=== PATIENT | female | born 1960 | race African-American/Black ===

== ENCOUNTER 2018-08-09 05:44 | Inpatient (IN) | payer MEDICAID, OTHER ==
[2018-08-09] VITALS (12 sets, daily range): BP systolic 131–169; BP diastolic 66–81
[~2018-08-09] VITALS: Ht 170.2 cm; Wt 72.6 kg
[~2018-08-09 05:44] MED LIST: LISINOPRIL
[2018-08-09] MEDS ORDERED: ONDANSETRON HCL 4MG/2ML INJ IV STA (06:33)
[2018-08-09] MEDS ORDERED: KETOROLAC 30MG/ML VIAL IV STA (06:33)
[2018-08-09] MEDS ORDERED: MAGNESIUM/ALUMINUM HYDROXIDE/SIMETHICONE 30ML UDC PO STA (06:33)
[2018-08-09] MEDS ORDERED: SODIUM CHLORIDE 0.9% 1,000 ML IV ONE (06:33)
[2018-08-09] MEDS ORDERED: PANTOPRAZOLE SODIUM 40 MG/VIAL IV ONE (06:45)
[2018-08-09 06:57] LABS: CHLORIDE 100 mEq/L (98-107); PROTHROMBIN TIME 10.5 sec (9.6-11.0)
[2018-08-09 07:23] LABS: HEMOGLOBIN. 8.6 g/dL (12.0-16.0); MEAN CORPUSCULAR HEMOGLOBIN 29.7 pg (28.0-32.0); MEAN CORPUSCULAR VOLUME 92.8 fL (81.0-99.0); MEAN PLATELET VOLUME 7.5 fl (7.4-10.4); PLATELET 729 x1000/uL (130-400); RED BLOOD CELL COUNT 2.91 mill/uL (4.2-5.4); RED CELL DISTRIBUTION WIDTH 14.2 % (11.6-14.6)
[2018-08-09] MEDS ORDERED: ALBUTEROL (0.083%) 2.5MG/3ML NEB HHN ONE (07:45)
[2018-08-09] MEDS ORDERED: INSULIN REGULAR (HUMULIN R) 300UNITS/3ML IV ONE (07:45)
[2018-08-09] MEDS ORDERED: SODIUM BICARBONATE 8.4% 1 MEQ/ML 50ML SYR IV ONE ×2 (07:45→16:46)
[2018-08-09] MEDS ORDERED: DEXTROSE 50% WATER 50ML SYRINGE IV ONE (07:45)
[2018-08-09 07:55] LABS: PLATELET ESTIMATE MARKEDLY INCREASED
[2018-08-09] MEDS ORDERED: ACETAMINOPHEN 325MG TABLET PO PRN (09:30)
[2018-08-09] MEDS ORDERED: ONDANSETRON HCL 4MG/2ML INJ IV PRN (09:30)
[2018-08-09 09:36] LABS: TOTAL IRON BINDING CAPACITY 236 ug/dL (250-450)
[2018-08-09] MEDS ORDERED: CLONIDINE 0.1MG TABLET PO PRN (09:45)
[2018-08-09] MEDS ORDERED: SODIUM BICARBONATE 8.4% 1 MEQ/ML 50ML SYR IV NR (12:00)
[2018-08-09] MEDS ORDERED: HEPARIN 1000 UNITS/ML 10ML ONE (12:31)
[2018-08-09] MEDS ORDERED: SODIUM BICARBONATE 4% (2.4MEQ) 5ML VIAL IV ONE (12:31)
[2018-08-09] MEDS ORDERED: LIDOCAINE HCL 1% 20ML VIAL (Pyxis) INJ ONE (12:31)
[2018-08-09] MEDS ORDERED: FENTANYL CITRATE/PF 50MCG/ML 2ML VIAL ONE (12:44)
[2018-08-09] MEDS ORDERED: FENTANYL CITRATE/PF 50MCG/ML 2ML VIAL IV ONE (12:45)
[2018-08-09] MEDS: CITRIC ACID/SODIUM CITRATE SOLN 30ML UDC PO SCH ×2 (13:00→16:43)
[2018-08-09] MEDS ORDERED: FENTANYL CITRATE/PF 50MCG/ML 2ML VIAL IV SCH (13:15)
[2018-08-09] MEDS: CEFTRIAXONE 1 G PREMIX 50 ML IV SCH (14:55)
[2018-08-09 16:29] LABS: BG BASE EXCESS -19.7 mmol/L (-2.0-2.0); BG CARBOXYHEMOGLOBIN 0.3 % (0.5-1.5); BG DEOXYHEMOGLOBIN 3.1 % (0.0-5.0); BG FRACTION INSPIRED OXYGEN 21; BG HCO3 ACT 7.6 mmol/L (22.0-26.0); BG METHEMOGLOBIN 0.3 % (0.0-1.5); BG OXYGEN SATURATION 96.9 % (92.0-98.5); BG OXYHEMOGLOBIN 96.3 % (94.0-97.0); BG PCO2 22.8 mmHg (35.0-45.0); BG PO2 109.8 mmHg (75.0-100.0); BG SAMPLE SITE RIGHT BRACHIAL; BG TOTAL HEMOGLOBIN 8.9 g/dL (12.0-18.0); BG VENT MODE ROOM AIR
[2018-08-09 17:37] LABS: HEPATITIS B SURFACE ANTIGEN NEGATIVE
[2018-08-09 17:44] LABS: HEPATITIS B SURFACE AB 5.6 mIU/mL
[2018-08-09] MEDS ORDERED: EPOETIN ALFA 10000UNITS/ML VIAL SUBCUT SCH (21:00)
[2018-08-09] MEDS: AMLODIPINE 5MG TABLET PO SCH (21:24)
[2018-08-10] VITALS: BP 133/74
[2018-08-10 04:00] VITALS: BP 136/60
[2018-08-10 06:38] LABS: HEMATOCRIT. 21.7 % (36.0-48.0); HEMOGLOBIN. 7.3 g/dL (12.0-16.0); MEAN CORPUSCULAR HEMOGLOBIN 29.5 pg (28.0-32.0); MEAN CORPUSCULAR VOLUME 88.2 fL (81.0-99.0); PLATELET 649 x1000/uL (130-400); RED BLOOD CELL COUNT 2.46 mill/uL (4.2-5.4); RED CELL DISTRIBUTION WIDTH 13.9 % (11.6-14.6)
[2018-08-10 07:26] LABS: PHOSPHORUS 6.9 mg/dL (2.5-4.9)
[2018-08-10 08:30] VITALS: BP 131/68
[2018-08-10] MEDS: AMLODIPINE 5MG TABLET PO SCH ×2 (08:41→21:05)
[2018-08-10 09:33] LABS: PLATELET ESTIMATE MARKEDLY INCREASED
[2018-08-10] MEDS: CEFTRIAXONE 1 G PREMIX 50 ML IV SCH (09:38)
[2018-08-10] MEDS: OMEPRAZOLE 20MG CAPSULE EXTENDED RELEASE PO SCH (09:38)
[2018-08-10] MEDS: AZITHROMYCIN 500 MG TABLET PO SCH (10:04)
[2018-08-10] MEDS: CITRIC ACID/SODIUM CITRATE SOLN 30ML UDC PO SCH (10:04)
[2018-08-10] MEDS ORDERED: NIFE30TA83 MT (10:08)
[2018-08-10] MEDS ORDERED: LISI-604 MT (10:08)
[2018-08-10] MEDS ORDERED: METF-416 MT (10:08)
[2018-08-10] MEDS ORDERED: GLIP5TAB12 MT (10:08)
[2018-08-10 12:00] VITALS: BP 100/61
[2018-08-10] MEDS: CALCIUM ACETATE 667MG CAPSULE PO SCH ×2 (13:27→18:04)
[2018-08-10 14:21] LABS: CLARITY URINE CLEAR (CLEAR); COLOR URINE YELLOW (YELLOW); KETONES URINE NEGATIVE (NEGATIVE); LEUKOCYTE ESTERASE URINE TRACE (NEGATIVE); NITRITE URINE NEGATIVE (NEGATIVE); OCCULT BLOOD URINE 1+ (NEGATIVE); PH URINE 7.5 (4.5-8.0); PROTEIN URINE 3+ (NEGATIVE); SPECIFIC GRAVITY URINE 1.009 (1.005-1.030); UROBILINOGEN URINE 0.2 E.U./dL (0.2-1.0)
[2018-08-10 16:00] VITALS: BP 149/77
[2018-08-11 04:00] VITALS: BP 153/68
[2018-08-11 04:21] LABS: HIV SCREEN 4G Non Reactive (Non Reactive)
[2018-08-11 06:31] LABS: HEMATOCRIT. 21.7 % (36.0-48.0); HEMOGLOBIN. 7.2 g/dL (12.0-16.0); MEAN CORPUSCULAR HEMOGLOBIN 29.7 pg (28.0-32.0); MEAN PLATELET VOLUME 6.7 fl (7.4-10.4); PLATELET 590 x1000/uL (130-400); RED BLOOD CELL COUNT 2.43 mill/uL (4.2-5.4); RED CELL DISTRIBUTION WIDTH 13.8 % (11.6-14.6)
[2018-08-11] MEDS: OMEPRAZOLE 20MG CAPSULE EXTENDED RELEASE PO SCH ×2 (06:38→08:18)
[2018-08-11] MEDS: CALCIUM ACETATE 667MG CAPSULE PO SCH ×2 (06:39→09:24)
[2018-08-11 07:20] LABS: PHOSPHORUS 4.3 mg/dL (2.5-4.9)
[2018-08-11 08:00] VITALS: BP 158/80
[2018-08-11] MEDS: AZITHROMYCIN 500 MG TABLET PO SCH (09:24)
[2018-08-11] MEDS: AMLODIPINE 5MG TABLET PO SCH (09:24)
[2018-08-11 09:44] LABS: PLATELET ESTIMATE INCREASED
[2018-08-11 12:36] VITALS: BP 137/74
[2018-08-11] MEDS ORDERED: NIFEDIPINE XL 30MG TAB PO SCH (21:00)
[2018-08-11] MEDS ORDERED: NIFEDIPINE XL 60MG TAB PO SCH (21:00)
[2018-08-12] MEDS ORDERED: CEFTRIAXONE 1 G PREMIX 50 ML IV SCH (09:00)
== END 2018-08-11 15:13 | disposition home or self-care (01) | DRG 139 ==
LOC: ER 05:44 → 8WST 07:46 → ENRESERV 09:58
PROVIDERS: ADMIT Internal Medicine; ATTEND Internal Medicine
PROC: 02H633Z Insertion of Infusion Device into Right Atrium, Percutaneous Approach (ICD-10-PCS; 2018-08-09)
PROC: B2141ZZ Fluoroscopy of Right Heart using Low Osmolar Contrast (ICD-10-PCS; 2018-08-09)
PROC: B244YZZ Ultrasonography of Right Heart using Other Contrast (ICD-10-PCS; 2018-08-09)
PROC: 5A1D70Z Performance of Urinary Filtration, Intermittent, Less than 6 Hours Per Day (ICD-10-PCS; principal; 2018-08-10)
DX: J18.9 Pneumonia, unspecified organism (principal); E43 Unspecified severe protein-calorie malnutrition; E11.22 Type 2 diabetes mellitus with diabetic chronic kidney disease; E87.5 Hyperkalemia; E87.2 Acidosis; I12.0 Hypertensive chronic kidney disease with stage 5 chronic kidney disease or end stage renal disease; N17.9 Acute kidney failure, unspecified; N18.6 End stage renal disease; D72.829 Elevated white blood cell count, unspecified; D64.9 Anemia, unspecified; Z82.49 Family history of ischemic heart disease and other diseases of the circulatory system; Z90.711 Acquired absence of uterus with remaining cervical stump; Z83.3 Family history of diabetes mellitus; Z90.710 Acquired absence of both cervix and uterus; Z98.891 History of uterine scar from previous surgery; Z68.25 Body mass index [BMI] 25.0-25.9, adult; Z79.84 Long term (current) use of oral hypoglycemic drugs
CPT/HCPCS: 36415; 36558; 36600; 71045; 74176; 76937; 77001; 80048; 82270; 82375; 82550; 82728; 82805; 82962; 83036; 83540; 83550; 83605; 83735; 84100; 86705; 86706; 86803; 87340; 87389; 93005; 93970; 96374; 96375; 99152; 99153; 99291; C1750; C9113; J0696; J0885; J1644; J1815; J1885; J2405; J3010; J3490; J7030; J7050; G0500

== ENCOUNTER 2018-10-28 16:54 | Inpatient (IN) | payer MEDICAID ==
[~2018-10-28] VITALS: Ht 170.2 cm; Wt 69.9 kg
[~2018-10-28 16:54] MED LIST changes: +GLIP5TAB12 MT; -LISINOPRIL; +NIFE30TA83 MT
[2018-10-29] VITALS (23 sets, daily range): BP systolic 84–146; BP diastolic 56–81
[2018-10-29 00:05] LABS: BASOPHILS % 0.5 % (0.0-2.0); EOSINOPHILS % 3.2 % (0.0-5.0); HEMATOCRIT. 47.3 % (36.0-48.0); MEAN CORPUSCULAR HEMOGLOBIN 30.7 pg (28.0-32.0); MEAN CORPUSCULAR VOLUME 96.6 fL (81.0-99.0); MEAN PLATELET VOLUME 8.6 fl (7.4-10.4); MONOCYTES % 5.7 % (2.0-8.0); NEUTROPHILS % 61.6 % (40.0-76.0); PLATELET 301 x1000/uL (130-400); RED CELL DISTRIBUTION WIDTH 14.3 % (11.6-14.6)
[2018-10-29 00:08] LABS: CHLORIDE 89 mEq/L (98-107)
[2018-10-29] MEDS ORDERED: SODIUM CHLORIDE 0.9% 1,000 ML IV ONE (00:39)
[2018-10-29] MEDS ORDERED: INSULIN REGULAR (HUMULIN R) UD 100 UNITS/ML SYR SUBCUT ONE (00:45)
[2018-10-29] MEDS ORDERED: INSULIN REGULAR (HUMULIN R) 300UNITS/3ML SUBCUT NR (03:00)
[2018-10-29] MEDS ORDERED: SITA25TA3 MT (07:18)
[2018-10-29] MEDS ORDERED: INSHUMSS SUBCUT (07:18)
[2018-10-29] MEDS ORDERED: LISI-604 MT (07:18)
[2018-10-29] MEDS ORDERED: NIFE30TA83 MT (07:18)
[2018-10-29] MEDS: INSULIN LISPRO 100 UNITS/ML SUBCUT SCH ×4 (08:00→20:51)
[2018-10-29] MEDS ORDERED: DEXTROSE 50% WATER 50ML SYRINGE IV PRN ×4 (08:15)
[2018-10-29] MEDS ORDERED: INSULIN LISPRO 100 UNITS/ML SUBCUT SCH ×3 (08:15→13:00)
[2018-10-29] MEDS ORDERED: MEDICATION NOT ON FORMULARY EA (Lisinopril 1 TAB) MT SCH (09:00)
[2018-10-29] MEDS ORDERED: NIFEDIPINE MT SCH (09:00)
[2018-10-29] MEDS ORDERED: MEDICATION NOT ON FORMULARY EA (Sitagliptin Phosphate (Januvia) 1 TAB) MT SCH (09:00)
[2018-10-29] MEDS: LINAGLIPTIN 5MG TABLET PO SCH (09:15)
[2018-10-29] MEDS: LISINOPRIL 20MG TABLET PO SCH (09:15)
[2018-10-29] MEDS: NIFEDIPINE XL 30MG TAB PO SCH (09:15)
[2018-10-29] MEDS ORDERED: FOLIC ACID/VITAMIN B COMP W-C TABLET PO SCH (10:00)
[2018-10-29 11:35] LABS: PHOSPHORUS 3.6 mg/dL (2.5-4.9)
[2018-10-29] MEDS ORDERED: ONDANSETRON HCL 4MG/2ML INJ IV PRN (11:45)
[2018-10-29] MEDS ORDERED: ONDANSETRON HCL 4MG/2ML INJ IM ONE (11:45)
[2018-10-29] MEDS ORDERED: LIDOCAINE HCL 1% 20ML VIAL (Pyxis) INJ ONE (11:56)
[2018-10-29] MEDS ORDERED: SODIUM BICARBONATE 4% (2.4MEQ) 5ML VIAL IV ONE (11:56)
[2018-10-29] MEDS ORDERED: CEFAZOLIN 1000MG PREMIX 50 ML IV ONE ×3 (12:00→12:12)
[2018-10-29] MEDS ORDERED: FENTANYL CITRATE/PF 50MCG/ML 2ML VIAL ONE (12:00)
[2018-10-29] MEDS ORDERED: BLOOD SUGAR DIAGNOSTIC STRIP TEST SCH ×3 (12:30)
[2018-10-29] MEDS ORDERED: ONDANSETRON HCL 4MG/2ML INJ ONE (12:43)
[2018-10-29] MEDS ORDERED: FENTANYL CITRATE/PF 50MCG/ML 2ML VIAL IV ONE (12:45)
[2018-10-29] MEDS ORDERED: ONDANSETRON HCL 4MG/2ML INJ IV SCH (13:00)
[2018-10-29] MEDS: FOLIC ACID/VITAMIN B COMP W-C TABLET PO SCH (14:14)
[2018-10-29] MEDS: INSULIN GLARGINE UD 100 UNITS/ML SYR SUBCUT SCH (14:16)
[2018-10-29] MEDS ORDERED: ATORVASTATIN CALCIUM 20MG TABLET PO SCH (21:00)
[2018-10-30] VITALS (8 sets, daily range): BP systolic 83–109; BP diastolic 58–72
[2018-10-30 06:11] LABS: BASOPHILS % 0.4 % (0.0-2.0); HEMATOCRIT. 38.9 % (36.0-48.0); HEMOGLOBIN. 12.8 g/dL (12.0-16.0); LYMPHOCYTES % 29.1 % (20.0-50.0); MEAN CORPUSCULAR HEMOGLOBIN 30.8 pg (28.0-32.0); MEAN CORPUSCULAR VOLUME 93.7 fL (81.0-99.0); MEAN PLATELET VOLUME 8.8 fl (7.4-10.4); NEUTROPHILS % 62.5 % (40.0-76.0); PHOSPHORUS 3.1 mg/dL (2.5-4.9); PLATELET 245 x1000/uL (130-400); RED BLOOD CELL COUNT 4.15 mill/uL (4.2-5.4); RED CELL DISTRIBUTION WIDTH 14.1 % (11.6-14.6)
[2018-10-30] MEDS: LINAGLIPTIN 5MG TABLET PO SCH (08:17)
[2018-10-30] MEDS: FOLIC ACID/VITAMIN B COMP W-C TABLET PO SCH (08:17)
[2018-10-30] MEDS: INSULIN LISPRO 100 UNITS/ML SUBCUT SCH (08:25)
[2018-10-30] MEDS: NIFEDIPINE XL 30MG TAB PO SCH (08:26)
[2018-10-30] MEDS: LISINOPRIL 20MG TABLET PO SCH (08:26)
[2018-10-30] MEDS: INSULIN GLARGINE UD 100 UNITS/ML SYR SUBCUT SCH (10:24)
[2018-10-30] MEDS ORDERED: INSULIN LISPRO 100 UNITS/ML SUBCUT SCH (12:30)
== END 2018-10-30 14:13 | disposition home or self-care (01) | DRG 466 ==
LOC: ER 16:54 → ENRESERV 10-29 02:48 → 5EST 10-29 06:29
PROVIDERS: ADMIT Internal Medicine Pulmonary Disease; ATTEND Internal Medicine Pulmonary Disease
PROC: 02PYX3Z Removal of Infusion Device from Great Vessel, External Approach (ICD-10-PCS; principal; 2018-10-29)
PROC: 5A1D70Z Performance of Urinary Filtration, Intermittent, Less than 6 Hours Per Day (ICD-10-PCS; 2018-10-29)
PROC: 02HV33Z Insertion of Infusion Device into Superior Vena Cava, Percutaneous Approach (ICD-10-PCS; 2018-10-29)
PROC: B5181ZA Fluoroscopy of Superior Vena Cava using Low Osmolar Contrast, Guidance (ICD-10-PCS; 2018-10-29)
DX: T82.42XA Displacement of vascular dialysis catheter, initial encounter (principal); I12.0 Hypertensive chronic kidney disease with stage 5 chronic kidney disease or end stage renal disease; E11.00 Type 2 diabetes mellitus with hyperosmolarity without nonketotic hyperglycemic-hyperosmolar coma (NKHHC); E11.22 Type 2 diabetes mellitus with diabetic chronic kidney disease; Y84.1 Kidney dialysis as the cause of abnormal reaction of the patient, or of later complication, without mention of misadventure at the time of the procedure; E11.65 Type 2 diabetes mellitus with hyperglycemia; Z99.2 Dependence on renal dialysis; N18.6 End stage renal disease; Z79.899 Other long term (current) drug therapy; E78.5 Hyperlipidemia, unspecified; E87.6 Hypokalemia; E87.1 Hypo-osmolality and hyponatremia; K76.0 Fatty (change of) liver, not elsewhere classified; N25.81 Secondary hyperparathyroidism of renal origin; Z79.4 Long term (current) use of insulin; Z80.1 Family history of malignant neoplasm of trachea, bronchus and lung; Z82.49 Family history of ischemic heart disease and other diseases of the circulatory system; Z83.3 Family history of diabetes mellitus; Z87.891 Personal history of nicotine dependence; Z90.711 Acquired absence of uterus with remaining cervical stump; Z98.891 History of uterine scar from previous surgery; Y92.89 Other specified places as the place of occurrence of the external cause
CPT/HCPCS: 36415; 36581; 71045; 77001; 80048; 82010; 82962; 83036; 84100; 93005; 96372; 99152; 99153; 99291; C1750; C1769; J0690; J1642; J1815; J2405; J3010; J3490; J7030; J7050; J7070; G0500

== ENCOUNTER 2021-07-13 21:26 | Inpatient (IN) | payer MEDICARE, MEDICAID ==
[~2021-07-13] VITALS: Ht 165.1 cm; Wt 83.6 kg
[~2021-07-13 21:26] MED LIST changes: -GLIP5TAB12 MT; +LISI20TA31 MT; -NIFE30TA83 MT; +SITA25TA3 MT
[2021-07-13] MEDS ORDERED: MECLIZINE 25MG TABLET PO ONE (23:00)
[2021-07-13] MEDS ORDERED: NITROGLYCERIN 0.4MG TABLET SL SL PRN (23:00)
[2021-07-13] MEDS ORDERED: ASPIRIN 81MG TABLET PO ONE (23:00)
[2021-07-13 23:35] LABS: BASOPHILS % 0.3 % (0.0-2.0); EOSINOPHILS % 1.8 % (0.0-5.0); HEMATOCRIT. 27.2 % (36.0-48.0); LYMPHOCYTES % 16.5 % (20.0-50.0); MEAN CORPUSCULAR HEMOGLOBIN 31.1 pg (28.0-32.0); MEAN CORPUSCULAR VOLUME 94.1 fL (81.0-99.0); MONOCYTES % 5.9 % (2.0-8.0); NEUTROPHILS % 75.5 % (40.0-76.0); PLATELET 356 x1000/uL (130-400); RED BLOOD CELL COUNT 2.89 mill/uL (4.2-5.4); RED CELL DISTRIBUTION WIDTH 14.1 % (11.6-14.6)
[2021-07-13 23:44] LABS: CHLORIDE 111 mEq/L (98-107)
[2021-07-14] MEDS ORDERED: FUROSEMIDE 100MG/10ML VIAL IV SCH (01:27)
[2021-07-14] MEDS ORDERED: DEXTROSE 50% WATER 50ML SYRINGE IV SCH (01:30)
[2021-07-14] MEDS ORDERED: SODIUM BICARBONATE 8.4% 1 MEQ/ML 50ML SYR IV SCH (01:30)
[2021-07-14] MEDS ORDERED: CALCIUM CHLORIDE 1GM/10ML SYR IV SCH (01:30)
[2021-07-14] MEDS ORDERED: ALBUTEROL (0.083%) 2.5MG/3ML NEB HHN SCH (01:30)
[2021-07-14] MEDS ORDERED: INSULIN REGULAR (HUMULIN R) 300UNITS/3ML VIAL IV SCH (01:30)
[2021-07-14] MEDS ORDERED: ALBUTEROL (0.5%) 2.5MG/0.5ML NEB HHN ONE (02:04)
[2021-07-14] MEDS ORDERED: LISINOPRIL 20MG TABLET PO ONE (03:15)
[2021-07-14 10:00] VITALS: BP 151/66
[2021-07-14] MEDS ORDERED: ACETAMINOPHEN 325MG TABLET PO PRN (11:30)
[2021-07-14] MEDS ORDERED: ONDANSETRON HCL 4MG/2ML INJ IV PRN (11:30)
[2021-07-14 12:00] VITALS: BP 154/74
[2021-07-14] MEDS: NIFEDIPINE XL 60MG TAB PO SCH (12:16)
[2021-07-14] MEDS ORDERED: DEXTROSE 50% WATER 50ML SYRINGE IV PRN (13:30)
[2021-07-14 16:00] VITALS: BP 110/61
[2021-07-14 17:38] LABS: HEPATITIS B SURFACE ANTIGEN NEGATIVE
[2021-07-14] MEDS: BLOOD SUGAR DIAGNOSTIC STRIP TEST SCH ×2 (17:54→21:55)
[2021-07-14] MEDS: INSULIN LISPRO 100 UNITS/ML SUBCUT SCH ×2 (18:01→22:11)
[2021-07-14 18:42] LABS: HEPATITIS B SURFACE AB < 3.1 mIU/mL
[2021-07-14 20:00] VITALS: BP 127/62
[2021-07-14] MEDS ORDERED: EPOETIN ALFA 10000UNITS/ML VIAL SUBCUT NR (21:00)
[2021-07-15] VITALS: BP 121/66
[2021-07-15 04:00] VITALS: BP 144/67
[2021-07-15] MEDS: BLOOD SUGAR DIAGNOSTIC STRIP TEST SCH ×2 (06:20→12:20)
[2021-07-15 06:39] LABS: BASOPHILS % 0.2 % (0.0-2.0); EOSINOPHILS % 2.3 % (0.0-5.0); HEMATOCRIT. 26.4 % (36.0-48.0); HEMOGLOBIN. 8.7 g/dL (12.0-16.0); MEAN CORPUSCULAR HEMOGLOBIN 31.2 pg (28.0-32.0); MEAN CORPUSCULAR VOLUME 94.3 fL (81.0-99.0); MEAN PLATELET VOLUME 7.8 fl (7.4-10.4); NEUTROPHILS % 66.5 % (40.0-76.0); PLATELET 346 x1000/uL (130-400); RED CELL DISTRIBUTION WIDTH 14.1 % (11.6-14.6)
[2021-07-15] MEDS: INSULIN LISPRO 100 UNITS/ML SUBCUT SCH ×2 (06:49→12:50)
[2021-07-15 07:20] LABS: PHOSPHORUS 5.4 mg/dL (2.5-4.9)
[2021-07-15 08:28] VITALS: BP 134/56
[2021-07-15] MEDS: NIFEDIPINE XL 60MG TAB PO SCH (08:31)
[2021-07-15 11:59] VITALS: BP 124/54
== END 2021-07-15 16:12 | disposition left against medical advice (07) | DRG 640 ==
LOC: ER 21:26 → 6WST 07-14 03:22 → ENRESERV 07-14 08:49
PROVIDERS: ADMIT Internal Medicine; ATTEND Internal Medicine
PROC: 5A1D70Z Performance of Urinary Filtration, Intermittent, Less than 6 Hours Per Day (ICD-10-PCS; principal; 2021-07-14)
DX: E87.5 Hyperkalemia (principal); N18.6 End stage renal disease; N25.81 Secondary hyperparathyroidism of renal origin; N17.9 Acute kidney failure, unspecified; I12.0 Hypertensive chronic kidney disease with stage 5 chronic kidney disease or end stage renal disease; I16.0 Hypertensive urgency; E87.2 Acidosis; R06.02 Shortness of breath; E11.22 Type 2 diabetes mellitus with diabetic chronic kidney disease; D64.9 Anemia, unspecified; E11.65 Type 2 diabetes mellitus with hyperglycemia; E78.00 Pure hypercholesterolemia, unspecified; E78.5 Hyperlipidemia, unspecified; E87.8 Other disorders of electrolyte and fluid balance, not elsewhere classified; Z79.899 Other long term (current) drug therapy; Z99.2 Dependence on renal dialysis; Z91.15 Patient's noncompliance with renal dialysis; Z90.710 Acquired absence of both cervix and uterus; Z53.29 Procedure and treatment not carried out because of patient's decision for other reasons; Z82.49 Family history of ischemic heart disease and other diseases of the circulatory system
CPT/HCPCS: 36415; 71045; 80048; 80053; 82962; 83036; 83735; 83880; 84100; 84484; 85025; 86705; 86706; 86709; 86803; 87340; 93005; 94640; 99285; J0885; J1815; J1940; J3490; J8597

== ENCOUNTER 2023-08-20 22:44 | Emergency (ER) | payer MEDICARE, MEDICAID ==
[~2023-08-20] VITALS: Ht 170.2 cm; Wt 73.0 kg
[2023-08-20 23:09] VITALS: TEMP 98.6; O2SAT 94
[2023-08-20] MEDS ORDERED: SODIUM CHLORIDE 0.9% 250 ML IV NR (23:45)
[2023-08-21 00:03] LABS: BASOPHILS % 0.5 % (0.0-2.0); EOSINOPHILS % 2.5 % (0.0-5.0); HEMATOCRIT. 26.9 % (36.0-48.0); HEMOGLOBIN. 8.7 g/dL (12.0-16.0); LYMPHOCYTES % 19.7 % (20.0-50.0); MEAN CORPUSCULAR HEMOGLOBIN 31.4 pg (28.0-32.0); MEAN CORPUSCULAR HGB CONC 32.5 g/dL (31.0-37.0); MEAN CORPUSCULAR VOLUME 96.5 fL (81.0-99.0); MEAN PLATELET VOLUME 6.8 fl (7.4-10.4); MONOCYTES % 7.8 % (2.0-8.0); NEUTROPHILS % 69.5 % (40.0-76.0); PLATELET 412 x1000/uL (130-400); RED BLOOD CELL COUNT 2.79 mill/uL (4.2-5.4); RED CELL DISTRIBUTION WIDTH 16.3 % (11.6-14.6); WHITE BLOOD COUNT 7.2 x1000/uL (4.5-11.0)
[2023-08-21 00:09] LABS: CHLORIDE 102 mEq/L (98-107); SODIUM 140 mEq/L (136-145)
[2023-08-21 00:10] LABS: CALCIUM 8.9 mg/dL (8.7-10.4); CARBON DIOXIDE 30 mEq/L (21-32)
[2023-08-21 00:15] LABS: GLUCOSE 262 mg/dL (70-105); UREA NITROGEN BLOOD 25 mg/dL (9-23)
[2023-08-21 00:17] LABS: ETHANOL BLOOD < 10 mg/dL (<10)
[2023-08-21 00:20] LABS: CREATININE 6.3 mg/dL (0.6-1.0); TROPONIN I HIGH SENSITIVITY 35 ng/L (3.0-34)
[2023-08-21 02:07] VITALS: BP 153/69; PULSE 94; RESP 16
== END 2023-08-21 02:13 | disposition home or self-care (01) ==
LOC: ER 22:44
DX: R53.83 Other fatigue (principal); D64.9 Anemia, unspecified; I12.0 Hypertensive chronic kidney disease with stage 5 chronic kidney disease or end stage renal disease; E11.22 Type 2 diabetes mellitus with diabetic chronic kidney disease; N18.6 End stage renal disease; Z99.2 Dependence on renal dialysis; Z90.710 Acquired absence of both cervix and uterus
CPT/HCPCS: 36415; 71045; 80048; 80320; 83880; 84484; 85025; 93005; 99285; G0480

== ENCOUNTER 2024-03-08 12:57 | Inpatient (IN) | payer MEDICARE, MEDICAID ==
[~2024-03-08] VITALS: Ht 170.2 cm; Wt 68.6 kg
[~2024-03-08 12:57] MED LIST changes: +AMLO10TA80 MT; +ATOR10TA69 MT; +FURO80TA3 MT; +INSU100I28 SQ
[2024-03-08 16:17] LABS: HEMATOCRIT. 33.5 % (36.0-48.0); HEMOGLOBIN. 10.5 g/dL (12.0-16.0); MEAN CORPUSCULAR HGB CONC 31.4 g/dL (31.0-37.0); MEAN CORPUSCULAR VOLUME 92.2 fL (81.0-99.0); MEAN PLATELET VOLUME 7.5 fl (7.4-10.4); PLATELET 528 x1000/uL (130-400); RED BLOOD CELL COUNT 3.64 mill/uL (4.2-5.4); RED CELL DISTRIBUTION WIDTH 16.3 % (11.6-14.6); WHITE BLOOD COUNT 13.4 x1000/uL (4.5-11.0)
[2024-03-08 16:22] LABS: DIFFERENTIAL COMMENT 1
[2024-03-08 16:27] LABS: PARTIAL THROMBOPLASTIN TIME 27.1 sec (23.4-31.0); PROTHROMBIN TIME 10.9 sec (9.6-11.0)
[2024-03-08 16:28] LABS: CHLORIDE 97 mEq/L (98-107); POTASSIUM 4.3 mEq/L (3.5-5.1); SODIUM 138 mEq/L (136-145)
[2024-03-08 16:29] LABS: CALCIUM 7.3 mg/dL (8.7-10.4); CARBON DIOXIDE 29 mEq/L (21-32)
[2024-03-08 16:34] LABS: GLUCOSE 166 mg/dL (70-105); UREA NITROGEN BLOOD 61 mg/dL (9-23)
[2024-03-08] MEDS: CEFTRIAXONE 2GM/50ML 50 ML IV ONE (16:34)
[2024-03-08] MEDS: AZITHROMYCIN 500 MG TABLET PO ONE (16:34)
[2024-03-08 16:42] LABS: ANISOCYTOSIS 1+; CREATININE 11.3 mg/dL (0.6-1.0); PLATELET ESTIMATE INCREASED
[2024-03-08 16:44] LABS: TROPONIN I HIGH SENSITIVITY 169 ng/L (3.0-34)
[2024-03-08] MEDS ORDERED: IPRATROPIUM/ALBUTEROL 0.5-3(2.5)MG/3ML NEB HHN PRN (18:00)
[2024-03-08] MEDS ORDERED: DOCUSATE SODIUM 100MG CAPSULE PO PRN (18:00)
[2024-03-08] MEDS ORDERED: ACETAMINOPHEN 325MG TABLET PO PRN (18:00)
[2024-03-08 18:19] LABS: TROPONIN I HIGH SENSITIVITY 156 ng/L (3.0-34)
[2024-03-08] MEDS ORDERED: LINA5TAB PO (19:04)
[2024-03-08] MEDS ORDERED: SYRI-1345 (19:04)
[2024-03-08] MEDS ORDERED: ROSU5CAP (19:04)
[2024-03-08] MEDS ORDERED: DEXTROSE 50% WATER 50ML SYRINGE IV PRN (19:30)
[2024-03-08] MEDS: BLOOD SUGAR DIAGNOSTIC STRIP TEST SCH (23:12)
[2024-03-08] MEDS: INSULIN LISPRO 100 UNITS/ML SUBCUT SCH (23:16)
[2024-03-09] MEDS: ACETAMINOPHEN 325MG TABLET PO PRN (00:25)
[2024-03-09 00:59] LABS: CLARITY URINE CLEAR (CLEAR); COLOR URINE YELLOW (YELLOW); GLUCOSE URINE 1+ (NEGATIVE); KETONES URINE NEGATIVE (NEGATIVE); LEUKOCYTE ESTERASE URINE TRACE (NEGATIVE); NITRITE URINE NEGATIVE (NEGATIVE); OCCULT BLOOD URINE TRACE (NEGATIVE); PH URINE 7.5 (4.5-8.0); PROTEIN URINE 4+ (NEGATIVE); SPECIFIC GRAVITY URINE 1.016 (1.005-1.030); UROBILINOGEN URINE 0.2 E.U./dL (0.2-1.0)
[2024-03-09 01:08] LABS: *AMPHETAMINES SCREEN URINE NEGATIVE (NEGATIVE)
[2024-03-09 01:09] LABS: *BARBITURATES SCREEN URINE NEGATIVE (NEGATIVE); *BENZODIAZEPINES SCREEN URINE NEGATIVE (NEGATIVE); *COCAINE SCREEN URINE NEGATIVE (NEGATIVE); CANNABINOID URINE SCREEN NEGATIVE (NEGATIVE); ECSTASY MDMA SCREEN URINE NEGATIVE (NEGATIVE); METHADONE URINE SCREEN NEGATIVE (NEGATIVE); OPIATES URINE SCREEN NEGATIVE (NEGATIVE); PHENCYCLIDINE URINE SCREEN NEGATIVE (NEGATIVE)
[2024-03-09 01:51] LABS: SQUAMOUS EPITHELIAL CELL URINE 1+ /lpf (RARE/1+)
[2024-03-09 01:53] LABS: BACTERIA URINE TRACE; RBC URINE 0-2 /hpf (0-2)
[2024-03-09 02:58] LABS: CREATINE KINASE MB FRACTION 4.6 ng/mL (0.5-3.6)
[2024-03-09 03:34] VITALS: BP 152/72; PULSE 94; RESP 20; TEMP 36.6404
[2024-03-09] MEDS: IBUPROFEN 600MG TABLET PO NR (05:47)
[2024-03-09] MEDS: PANTOPRAZOLE 40MG DR TABLET PO SCH (06:01)
[2024-03-09 08:00] VITALS: BP 143/77; PULSE 94; RESP 20; TEMP 36.44736; O2SAT 97
[2024-03-09] MEDS: ENOXAPARIN 40MG/0.4ML SYR SUBCUT SCH (08:49)
[2024-03-09] MEDS ORDERED: CEFTRIAXONE 1,000 MG in DEXT 5% WATER 100 ML IV SCH (09:00)
[2024-03-09 12:00] VITALS: BP 141/73; PULSE 106; RESP 18; TEMP 36.33624; O2SAT 98
[2024-03-09] MEDS: FUROSEMIDE 100MG/10ML VIAL IVP NR (13:29)
[2024-03-09 13:49] LABS: HEMATOCRIT. 27.3 % (36.0-48.0); HEMOGLOBIN. 8.5 g/dL (12.0-16.0); MEAN CORPUSCULAR HEMOGLOBIN 29.4 pg (28.0-32.0); MEAN CORPUSCULAR HGB CONC 31.3 g/dL (31.0-37.0); MEAN CORPUSCULAR VOLUME 93.9 fL (81.0-99.0); MEAN PLATELET VOLUME 7.5 fl (7.4-10.4); PLATELET 460 x1000/uL (130-400); RED CELL DISTRIBUTION WIDTH 16.4 % (11.6-14.6); WHITE BLOOD COUNT 9.8 x1000/uL (4.5-11.0)
[2024-03-09 13:55] LABS: PARTIAL THROMBOPLASTIN TIME 34.5 sec (23.4-31.0); PROTHROMBIN TIME 11.4 sec (9.6-11.0)
[2024-03-09 14:12] LABS: DIFFERENTIAL COMMENT 1
[2024-03-09 14:37] LABS: CARBON DIOXIDE 26 mEq/L (21-32); CHLORIDE 99 mEq/L (98-107); POTASSIUM 4.3 mEq/L (3.5-5.1); SODIUM 137 mEq/L (136-145)
[2024-03-09 14:38] LABS: CALCIUM 6.4 mg/dL (8.7-10.4)
[2024-03-09 14:43] LABS: GLUCOSE 231 mg/dL (70-105); UREA NITROGEN BLOOD 64 mg/dL (9-23)
[2024-03-09 14:44] LABS: CREATINE KINASE 221 IU/L (34-145)
[2024-03-09 14:45] LABS: PHOSPHORUS 7.8 mg/dL (2.5-4.9)
[2024-03-09 14:46] LABS: CREATININE 11.2 mg/dL (0.6-1.0)
[2024-03-09 14:49] LABS: CREATINE KINASE MB FRACTION 4.6 ng/mL (0.5-3.6)
[2024-03-09 14:53] LABS: THYROID STIMULATING HORMONE 0.97 uIU/mL (0.55-4.78)
[2024-03-09 15:28] LABS: TROPONIN I HIGH SENSITIVITY 131 ng/L (3.0-34)
[2024-03-09] MEDS: AZITHROMYCIN 500MG/250ML 250 ML IV SCH (15:39)
[2024-03-09] MEDS: CEFTRIAXONE 1GM/50ML 50ML IV SCH (15:39)
[2024-03-09 16:00] VITALS: BP 147/76; PULSE 104; RESP 22; TEMP 37.16964; O2SAT 95
[2024-03-09] MEDS: ONDANSETRON HCL 4MG/2ML INJ IV PRN (16:18)
[2024-03-09 17:08] LABS: HEPATITIS B SURFACE ANTIGEN NEGATIVE (Negative)
[2024-03-09 17:29] LABS: HEPATITIS A AB IGM NEGATIVE (Negative); HEPATITIS B CORE AB IGM NEGATIVE (Negative)
[2024-03-09 17:30] LABS: HEPATITIS C AB NON REACTIVE (Neg) (Negative)
[2024-03-09] MEDS: GUAIFENESIN 200MG/10ML SUGAR FREE UDC PO PRN (18:40)
[2024-03-09 20:00] VITALS: BP 140/69; PULSE 110; RESP 18; TEMP 36.61404; O2SAT 96
[2024-03-09] MEDS ORDERED: EPOETIN ALFA 10000UNITS/ML VIAL SUBCUT SCH (21:00)
[2024-03-09] MEDS: CLONIDINE 0.1MG TABLET PO PRN (21:33)
[2024-03-09] MEDS: EPOETIN ALFA-EPBX 4,000 UNIT/ML VIAL SUBCUT SCH (21:33)
[2024-03-09] MEDS: FAMOTIDINE 20MG TABLET PO SCH (21:34)
[2024-03-09] MEDS: ATORVASTATIN CALCIUM 10MG TABLET PO SCH (21:34)
[2024-03-10] VITALS (10 sets, daily range): BP systolic 130–183; BP diastolic 71–87; PULSE 78–116; RESP 16–20; TEMP 36.114–36.72516; O2SAT 96–100
[2024-03-10] MEDS: VANCOMYCIN 1.25GM PMX (XELLIA) 250 ML IV NR (03:14)
[2024-03-10 07:57] LABS: ANISOCYTOSIS 1+; PLATELET ESTIMATE INCREASED
[2024-03-10] MEDS: FUROSEMIDE 40MG/4ML VIAL IVP SCH (08:43)
[2024-03-10 08:51] LABS: BASOPHILS % 0.2 % (0.0-2.0); DIFFERENTIAL COMMENT 0; EOSINOPHILS % 0.7 % (0.0-5.0); HEMOGLOBIN. 8.7 g/dL (12.0-16.0); LYMPHOCYTES % 7.8 % (20.0-50.0); MEAN CORPUSCULAR HEMOGLOBIN 29.4 pg (28.0-32.0); MEAN PLATELET VOLUME 7.4 fl (7.4-10.4); MONOCYTES % 8.6 % (2.0-8.0); NEUTROPHILS % 82.7 % (40.0-76.0); PLATELET 497 x1000/uL (130-400); RED BLOOD CELL COUNT 2.94 mill/uL (4.2-5.4); RED CELL DISTRIBUTION WIDTH 16.4 % (11.6-14.6); WHITE BLOOD COUNT 13.4 x1000/uL (4.5-11.0)
[2024-03-10 09:17] LABS: POTASSIUM 3.4 mEq/L (3.5-5.1)
[2024-03-10 09:18] LABS: CALCIUM 7.7 mg/dL (8.7-10.4)
[2024-03-10 11:13] LABS: CREATININE 5.7 mg/dL (0.6-1.0)
[2024-03-10] MEDS ORDERED: AZITHROMYCIN 500MG/250ML 250 ML IV SCH (15:00)
[2024-03-10] MEDS: POTASSIUM CHLORIDE 20MEQ TABLET SR PO NR (15:37)
[2024-03-10] MEDS: ENOXAPARIN 30MG/0.3ML SYR SUBCUT SCH (15:48)
[2024-03-10] MEDS ORDERED: MAGNESIUM 2 G PREMIX 50 ML IV NR (16:30)
[2024-03-10] MEDS: IBUPROFEN 600MG TABLET PO PRN (22:22)
[2024-03-11] VITALS (15 sets, daily range): BP systolic 83–154; BP diastolic 50–81; PULSE 68–114; RESP 17–20; TEMP 36.00288–36.50292; O2SAT 96–100
[2024-03-11] MEDS: VANCOMYCIN 500MG/100ML IV NR (06:03)
[2024-03-11 08:44] LABS: CHLORIDE 98 mEq/L (98-107); POTASSIUM 4.9 mEq/L (3.5-5.1); SODIUM 136 mEq/L (136-145)
[2024-03-11 08:45] LABS: CALCIUM 7.5 mg/dL (8.7-10.4); CARBON DIOXIDE 26 mEq/L (21-32)
[2024-03-11 08:48] LABS: BASOPHILS % 0.1 % (0.0-2.0); EOSINOPHILS % 1.2 % (0.0-5.0); HEMATOCRIT. 27.3 % (36.0-48.0); HEMOGLOBIN. 8.5 g/dL (12.0-16.0); LYMPHOCYTES % 11.8 % (20.0-50.0); MEAN CORPUSCULAR HEMOGLOBIN 29.7 pg (28.0-32.0); MEAN CORPUSCULAR HGB CONC 31.3 g/dL (31.0-37.0); MEAN CORPUSCULAR VOLUME 94.9 fL (81.0-99.0); MEAN PLATELET VOLUME 7.5 fl (7.4-10.4); MONOCYTES % 10.7 % (2.0-8.0); NEUTROPHILS % 76.2 % (40.0-76.0); PLATELET 455 x1000/uL (130-400); RED BLOOD CELL COUNT 2.87 mill/uL (4.2-5.4); RED CELL DISTRIBUTION WIDTH 16.1 % (11.6-14.6); WHITE BLOOD COUNT 7.8 x1000/uL (4.5-11.0)
[2024-03-11 08:50] LABS: GLUCOSE 157 mg/dL (70-105); UREA NITROGEN BLOOD 48 mg/dL (9-23)
[2024-03-11 09:06] LABS: CREATININE 9.7 mg/dL (0.6-1.0)
[2024-03-11 09:08] LABS: PHOSPHORUS 8.4 mg/dL (2.5-4.9)
[2024-03-11] MEDS: PIPERACILLIN/TAZO 3.375G/100ML 100 ML IV SCH (09:59)
[2024-03-11] MEDS ORDERED: IOHEXOL-350 100 ML BOTTLE ONE (11:02)
[2024-03-12] VITALS: BP 159/70; PULSE 98; RESP 18; TEMP 36.61404; O2SAT 99
[2024-03-12 07:08] LABS: CARBON DIOXIDE 25 mEq/L (21-32); CHLORIDE 98 mEq/L (98-107); SODIUM 136 mEq/L (136-145)
[2024-03-12 07:10] LABS: CALCIUM 7.7 mg/dL (8.7-10.4)
[2024-03-12 07:14] LABS: GLUCOSE 394 mg/dL (70-105)
[2024-03-12 07:15] LABS: UREA NITROGEN BLOOD 45 mg/dL (9-23)
[2024-03-12 07:17] LABS: PHOSPHORUS 6.6 mg/dL (2.5-4.9)
[2024-03-12 07:27] LABS: CREATININE 7.4 mg/dL (0.6-1.0)
[2024-03-12 08:00] VITALS: BP 138/72; PULSE 105; RESP 18; TEMP 36.114; O2SAT 99
[2024-03-12 10:08] LABS: BASOPHILS % 0.4 % (0.0-2.0); EOSINOPHILS % 1.2 % (0.0-5.0); HEMATOCRIT. 30.5 % (36.0-48.0); HEMOGLOBIN. 9.6 g/dL (12.0-16.0); LYMPHOCYTES % 11.5 % (20.0-50.0); MEAN CORPUSCULAR HEMOGLOBIN 29.9 pg (28.0-32.0); MEAN CORPUSCULAR HGB CONC 31.5 g/dL (31.0-37.0); MEAN CORPUSCULAR VOLUME 94.9 fL (81.0-99.0); MEAN PLATELET VOLUME 7.6 fl (7.4-10.4); MONOCYTES % 11.9 % (2.0-8.0); PLATELET 534 x1000/uL (130-400); RED BLOOD CELL COUNT 3.21 mill/uL (4.2-5.4); RED CELL DISTRIBUTION WIDTH 16.4 % (11.6-14.6); WHITE BLOOD COUNT 8.8 x1000/uL (4.5-11.0)
[2024-03-12 12:00] VITALS: BP 140/74; PULSE 113; RESP 19; TEMP 36.16956; O2SAT 98
[2024-03-12] MEDS ORDERED: AMOX1TAB49 MT (13:40)
[2024-03-12] MEDS: VANCOMYCIN 500MG/100ML IV NR (18:26)
[2024-03-12] MEDS: INSULIN GLARGINE 100 UNITS/ML SUBCUT SCH (21:19)
[2024-03-13] MEDS ORDERED: IBUPROFEN 400MG TABLET PO NR (05:30)
[2024-03-13] MEDS: IBUPROFEN 400MG TABLET PO NR (06:27)
[2024-03-13 06:44] LABS: POTASSIUM 4.9 mEq/L (3.5-5.1)
[2024-03-13 06:45] LABS: CALCIUM 7.8 mg/dL (8.7-10.4)
[2024-03-13 11:09] LABS: HEMATOCRIT. 26.3 % (36.0-48.0); HEMOGLOBIN. 8.3 g/dL (12.0-16.0); MEAN CORPUSCULAR HEMOGLOBIN 29.8 pg (28.0-32.0); MEAN CORPUSCULAR HGB CONC 31.5 g/dL (31.0-37.0); MEAN CORPUSCULAR VOLUME 94.6 fL (81.0-99.0); MEAN PLATELET VOLUME 7.4 fl (7.4-10.4); PLATELET 525 x1000/uL (130-400); RED BLOOD CELL COUNT 2.78 mill/uL (4.2-5.4); RED CELL DISTRIBUTION WIDTH 16.5 % (11.6-14.6); WHITE BLOOD COUNT 7.9 x1000/uL (4.5-11.0)
[2024-03-13 11:32] LABS: DIFFERENTIAL COMMENT 1
[2024-03-13 12:19] VITALS: BP 160/79; PULSE 99; TEMP 97.4; O2SAT 96
[2024-03-13 19:14] LABS: ANISOCYTOSIS 1+; PLATELET ESTIMATE INCREASED
== END 2024-03-13 13:26 | disposition home or self-care (01) | DRG 871 ==
LOC: ER 13:07 → 7EST 16:59 → EDBEDREQ 17:02 → 7EST 03-10 10:28
PROVIDERS: ADMIT Hospitalist; ATTEND Hospitalist
PROC: 5A1D70Z Performance of Urinary Filtration, Intermittent, Less than 6 Hours Per Day (ICD-10-PCS; principal; 2024-03-10)
PROC: 5A1D70Z Performance of Urinary Filtration, Intermittent, Less than 6 Hours Per Day (ICD-10-PCS; 2024-03-11)
DX: A41.9 Sepsis, unspecified organism (principal); I21.A1 Myocardial infarction type 2; J96.90 Respiratory failure, unspecified, unspecified whether with hypoxia or hypercapnia; N18.6 End stage renal disease; I12.0 Hypertensive chronic kidney disease with stage 5 chronic kidney disease or end stage renal disease; J98.11 Atelectasis; N25.81 Secondary hyperparathyroidism of renal origin; Z20.822 Contact with and (suspected) exposure to COVID-19; D63.1 Anemia in chronic kidney disease; E78.5 Hyperlipidemia, unspecified; E83.42 Hypomagnesemia; E87.6 Hypokalemia; E87.70 Fluid overload, unspecified; J20.9 Acute bronchitis, unspecified; E11.22 Type 2 diabetes mellitus with diabetic chronic kidney disease; Z99.2 Dependence on renal dialysis; Z91.158 Patient's noncompliance with renal dialysis for other reason; Z79.84 Long term (current) use of oral hypoglycemic drugs; Z79.899 Other long term (current) drug therapy; Z82.49 Family history of ischemic heart disease and other diseases of the circulatory system; Z83.3 Family history of diabetes mellitus
CPT/HCPCS: 36415; 71045; 71275; 80048; 80202; 80305; 81003; 82040; 82550; 82553; 82962; 83036; 83605; 83735; 83880; 84100; 84145; 84443; 84484; 85025; 85651; 86705; 86709; 87340; 87426; 87804; 90935; 93005; 93970; 99291; J0696; J0885; J1650; J1815; J1940; J2405; J2543; J3370; J3475; Q9967

== ENCOUNTER 2024-10-30 06:44 | Inpatient (IN) | payer MEDICARE, MEDICAID ==
[~2024-10-30] VITALS: Ht 170.2 cm; Wt 68.9 kg
[2024-10-30] VITALS (14 sets, daily range): BP systolic 90–151; BP diastolic 63–84; PULSE 76–107; RESP 12–27; TEMP 36.5–36.6; O2SAT 90–100
[~2024-10-30 06:44] MED LIST changes: -AMLO10TA80 MT; +AMLO5TAB88 PO; +ASPI-1160 PO; -ATOR10TA69 MT; +CLOP-31 PO; +COR3 PO; -INSU100I28 SQ; +LEVO25TA7 MT; +LINA5TAB PO; +LIP40 PO; -LISI20TA31 MT; +LISI20TA31 PO; -SITA25TA3 MT; +SYRI-1345
[2024-10-30 07:52] LABS: BASOPHILS % 0.2 % (0.0-2.0); EOSINOPHILS % 2.4 % (0.0-5.0); HEMATOCRIT. 28.9 % (36.0-48.0); HEMOGLOBIN. 9.1 g/dL (12.0-16.0); LYMPHOCYTES % 19.2 % (20.0-50.0); MEAN PLATELET VOLUME 7.6 fl (7.4-10.4); MONOCYTES % 5.7 % (2.0-8.0); NEUTROPHILS % 72.5 % (40.0-76.0); PLATELET 461 x1000/uL (130-400); RED BLOOD CELL COUNT 3.05 mill/uL (4.2-5.4); RED CELL DISTRIBUTION WIDTH 18.8 % (11.6-14.6)
[2024-10-30 08:09] LABS: UREA NITROGEN BLOOD 63 mg/dL (9-23)
[2024-10-30 08:15] LABS: CREATININE 9.7 mg/dL (0.6-1.0); TROPONIN I HIGH SENSITIVITY 73 ng/L (3.0-34)
[2024-10-30 09:54] LABS: UREA NITROGEN BLOOD 65.0 mg/dL (9-23)
[2024-10-30 09:59] LABS: CREATININE 9.9 mg/dL (0.6-1.0)
[2024-10-30 10:01] LABS: TROPONIN I HIGH SENSITIVITY 190.0 ng/L (3.0-34)
[2024-10-30] MEDS ORDERED: SODIUM POLYSTYRENE SULFONATE 15 G/60 ML BOT PO ONE (10:30)
[2024-10-30] MEDS ORDERED: ALBUTEROL (0.083%) 2.5MG/3ML NEB HHN SCH (10:30)
[2024-10-30] MEDS ORDERED: SODIUM BICARBONATE 8.4% 50MEQ/50ML VIAL IV ONE (10:30)
[2024-10-30] MEDS ORDERED: IPRATROPIUM/ALBUTEROL 0.5-3(2.5)MG/3ML NEB HHN PRN (10:45)
[2024-10-30] MEDS ORDERED: ACETAMINOPHEN 325MG TABLET PO PRN (10:45)
[2024-10-30] MEDS ORDERED: MAGNESIUM/ALUMINUM HYDROXIDE/SIMETHICONE 30ML UDC PO PRN (10:45)
[2024-10-30] MEDS ORDERED: GUAIFENESIN 200MG/10ML SUGAR FREE UDC PO PRN (10:45)
[2024-10-30] MEDS ORDERED: DOCUSATE SODIUM 100MG CAPSULE PO PRN (10:45)
[2024-10-30] MEDS ORDERED: CLONIDINE 0.1MG TABLET PO PRN (10:45)
[2024-10-30] MEDS ORDERED: ONDANSETRON HCL 4MG/2ML INJ IV PRN (10:45)
[2024-10-30] MEDS: SODIUM ZIRCONIUM CYCLOSILICATE 10GM/PACKET PO SCH (10:45)
[2024-10-30] MEDS ORDERED: DEXTROSE 50% WATER 50ML SYRINGE IV PRN (11:15)
[2024-10-30] MEDS ORDERED: HYDRALAZINE 20MG/ML VIAL IV PRN (11:15)
[2024-10-30] MEDS: FUROSEMIDE 100MG/10ML VIAL IV SCH (11:18)
[2024-10-30] MEDS: DEXTROSE 50% WATER 50ML SYRINGE IV SCH (11:18)
[2024-10-30] MEDS: SODIUM BICARBONATE 8.4% 50MEQ/50ML SYR IV SCH (11:18)
[2024-10-30] MEDS: INSULIN REGULAR (HUMULIN R) 1000UNITS/10ML VIAL IV SCH (11:20)
[2024-10-30 12:42] LABS: FOLIC ACID (FOLATE) SERUM 6.65 ng/mL (>5.38); VITAMIN B12 SERUM 453 pg/mL (211-911)
[2024-10-30] MEDS: BLOOD SUGAR DIAGNOSTIC STRIP TEST SCH (13:00)
[2024-10-30] MEDS: ENOXAPARIN 30MG/0.3ML SYR SUBCUT SCH (13:06)
[2024-10-30] MEDS: CALCIUM GLUCONATE 100MG/ML 10ML VIAL IV SCH (13:07)
[2024-10-30] MEDS: INSULIN LISPRO 100 UNITS/ML SUBCUT SCH (13:08)
[2024-10-30] MEDS: HYDRALAZINE HCL 25MG TABLET PO SCH (13:09)
[2024-10-30 13:26] LABS: PHOSPHORUS 8.0 mg/dL (2.5-4.9)
[2024-10-30 14:05] LABS: HEPATITIS A AB IGM NEGATIVE (Negative)
[2024-10-30 14:06] LABS: HEPATITIS B CORE AB IGM NEGATIVE (Negative); HEPATITIS C AB NON REACTIVE (Neg) (Negative)
[2024-10-30 15:58] LABS: TROPONIN I HIGH SENSITIVITY 424 ng/L (3.0-34)
[2024-10-30] MEDS: AMLODIPINE 5MG TABLET PO SCH (20:46)
[2024-10-30] MEDS: ATORVASTATIN CALCIUM 40MG TABLET PO SCH (21:06)
[2024-10-30] MEDS: ACETAMINOPHEN 325MG TABLET PO PRN (21:12)
[2024-10-31] VITALS (11 sets, daily range): BP systolic 119–146; BP diastolic 57–73; PULSE 88–98; RESP 12–19; TEMP 36.50292–36.8; O2SAT 70–100
[2024-10-31] MEDS: HYDROCODONE/ACETAMINOPHEN 5/325MG TABLET PO NR (00:06)
[2024-10-31 01:20] LABS: TROPONIN I HIGH SENSITIVITY 835 ng/L (3.0-34)
[2024-10-31] MEDS: EPOETIN ALFA-EPBX 4,000 UNIT/ML VIAL SUBCUT SCH (01:45)
[2024-10-31 05:39] LABS: BASOPHILS % 0.3 % (0.0-2.0); EOSINOPHILS % 3.2 % (0.0-5.0); HEMATOCRIT. 24.7 % (36.0-48.0); HEMOGLOBIN. 8.3 g/dL (12.0-16.0); LYMPHOCYTES % 20.4 % (20.0-50.0); MEAN PLATELET VOLUME 7.6 fl (7.4-10.4); MONOCYTES % 10.5 % (2.0-8.0); NEUTROPHILS % 65.6 % (40.0-76.0); PLATELET 340 x1000/uL (130-400); RED BLOOD CELL COUNT 2.73 mill/uL (4.2-5.4); RED CELL DISTRIBUTION WIDTH 19.0 % (11.6-14.6)
[2024-10-31 06:02] LABS: LDL CHOLESTEROL 71 mg/dL (5-100); TRIGLYCERIDE 89 mg/dL (0-150); UREA NITROGEN BLOOD 40 mg/dL (9-23)
[2024-10-31 06:03] LABS: ASPARTATE AMINOTRANSFERASE 10 IU/L (<34)
[2024-10-31 06:04] LABS: BILIRUBIN DIRECT < 0.1 mg/dL (<=3.0); BILIRUBIN TOTAL 0.2 mg/dL (0.1-1.0); CREATININE 6.6 mg/dL (0.6-1.0); PROTEIN TOTAL 6.3 g/dL (6.0-8.3); T4 FREE 0.69 ng/dL (0.89-1.76)
[2024-10-31] MEDS ORDERED: NALOXONE HCL 0.4MG/ML VIAL IV PRN (08:15)
[2024-10-31] MEDS: ASPIRIN 81MG EC TABLET PO SCH (09:59)
[2024-10-31] MEDS: CLOPIDOGREL 75MG TABLET PO SCH (09:59)
[2024-10-31] MEDS: MULTIVITAMINS,THER W-MINERALS TABLET PO SCH (09:59)
[2024-10-31] MEDS: FUROSEMIDE 40MG/4ML VIAL IV SCH (09:59)
[2024-10-31] MEDS: PANTOPRAZOLE SODIUM 40 MG/VIAL IV SCH (10:00)
[2024-10-31] MEDS: LEVOTHYROXINE SODIUM 25MCG TABLET PO SCH (10:00)
[2024-10-31] MEDS: FERROUS SULFATE 325MG TABLET PO SCH (10:00)
[2024-10-31] MEDS: HYDROCODONE/ACETAMINOPHEN 5/325MG TABLET PO PRN (10:01)
== END 2024-10-31 13:00 | disposition left against medical advice (07) | DRG 280 ==
LOC: ER 06:44 → 5EST 08:06 → EDBEDREQTM 08:09 → EDBEDREQ 08:09 → ENRESERV 10:18
PROVIDERS: ADMIT Hospitalist; ATTEND Hospitalist
PROC: 5A1D70Z Performance of Urinary Filtration, Intermittent, Less than 6 Hours Per Day (ICD-10-PCS; principal; 2024-10-30)
PROC: 5A09457 Assistance with Respiratory Ventilation, 24-96 Consecutive Hours, Continuous Positive Airway Pressure (ICD-10-PCS; 2024-10-30)
DX: I13.2 Hypertensive heart and chronic kidney disease with heart failure and with stage 5 chronic kidney disease, or end stage renal disease (principal); I50.23 Acute on chronic systolic (congestive) heart failure; I21.4 Non-ST elevation (NSTEMI) myocardial infarction; J96.01 Acute respiratory failure with hypoxia; N18.6 End stage renal disease; E11.52 Type 2 diabetes mellitus with diabetic peripheral angiopathy with gangrene; E87.5 Hyperkalemia; D64.9 Anemia, unspecified; E11.22 Type 2 diabetes mellitus with diabetic chronic kidney disease; E78.5 Hyperlipidemia, unspecified; I25.10 Atherosclerotic heart disease of native coronary artery without angina pectoris; Z53.29 Procedure and treatment not carried out because of patient's decision for other reasons; D75.839 Thrombocytosis, unspecified; E03.9 Hypothyroidism, unspecified; I34.0 Nonrheumatic mitral (valve) insufficiency; I16.0 Hypertensive urgency; Z90.711 Acquired absence of uterus with remaining cervical stump; Z95.5 Presence of coronary angioplasty implant and graft; Z99.2 Dependence on renal dialysis; Z91.158 Patient's noncompliance with renal dialysis for other reason
CPT/HCPCS: 36415; 71045; 80048; 80061; 80076; 82550; 82607; 82728; 82746; 82962; 83036; 83540; 83550; 83735; 83880; 84100; 84439; 84443; 84484; 85025; 85044; 86705; 86709; 87340; 90935; 93005; 94070; 94660; 94664; 97162; 97166; 99291; A4606; J0610; J0885; J1650; J1815; J1938; J2470; J3490